=== PATIENT | female | born 1970 | race Caucasian/White ===

== ENCOUNTER 2017-04-10 13:04 | Inpatient (IN) | payer MEDICAID, SELFPAY ==
[2017-04-10] VITALS (11 sets, daily range): BP systolic 101–161; BP diastolic 64–98; PULSE 62–98; RESP 14–18; TEMP 36.6–37.3; O2SAT 93–98; BMI 26.3; BMI 25.9
[2017-04-10 14:45] LABS: Absolute Lymphocyte Count 2.48 X10^3/ul (0.83-4.51); Absolute Neutrophil Count 5.3 X10^3/uL (2.0-7.7); Basophil# 0.09 X10^3/uL; Eosinophil# 0.09 X10^3/uL; Hematocrit 47.8 % (37-47); Hemoglobin 16.9 g/dl (12.0-15.0); Lymphocyte # 2.48 X10^3/ul (4.0); Lymphocyte % 28.7 % (19-41); Mean Corp Hgb Conc 35.4 g/gl (32-36); Mean Corpuscular Volume 104.6 fL (81-99); Mean Platelet Vol. 10.1 fl (6.2-12.0); Monocyte# 0.71 X10^3/uL; Monocyte% 8.2 % (0-10); Neutrophil # 5.26 X10^3/uL (2.7-7.7); Neutrophil % 60.9 % (47-70); POSITIVE COUNT NO; POSITIVE DIFFERENTIAL NO; POSITIVE MORPHOLOGY NO; Platelet Count 221 K/mm3 (150-450); RBC Distribution Width CV 11.9 % (11.6-14.6); RBC Distribution Width SD 45.4 fl (35.1-43.9); Red Blood Count 4.57 M/mm3 (4.2-5.4); White Blood Count 8.7 K/mm3 (4.4-11.0)
[2017-04-10 14:59] LABS: ALB/GLOB Ratio 0.8 RATIO (0.9-2.4); AST(SGOT) 33 U/L (15-37); Alanine Aminotransfer ALT/SGPT 60 U/L (13-56); Albumin, Serum 3.5 g/dL (3.2-5.0); Alkaline Phosphatase 65 U/L (45-117); Anion Gap 8 (5-15); BUN 6 mg/dL (7-18); Calcium,Total 8.9 mg/dL (8.5-10.1); Chloride 102 mmol/L (98-107); Creatinine, Serum 0.67 mg/dL (0.55-1.02); EST Glomerular Filtration Rate 102 mL/min (>60); Est Glom Filt Rate - Afr Amer 123 mL/min (>60); Estimated Creatinine Clearance 91.56 ml/min; Globulin 4.2 g/dL (2.2-4.2); Glucose 76 mg/dL (74-106); Potassium 3.8 mmol/L (3.5-5.1); Protein, Total 7.7 g/dL (6.4-8.2); Sodium Level 137 mmol/L (136-145)
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
[2017-04-10 15:04] LABS: Pregnancy, Serum, hCG Quali. NEGATIVE Negative (0-9 Nonpreg)
--- NOTE | 2017-04-10 15:23 | ED.VISSUMM ---
- ER Visit Summary Date of Service: 04/10/17 Chief Complaint: Alcohol withdrawal History of Present Illness: The patient is a 47 F who goes to [facility] in [place]. She reports that she typically drinks 8-1024 ounce but ice a day. Also she occasionally has liquor. She has been doing this for approximately 2 years. Her last beer was today. States that she drank 1 beer this morning because she felt nauseated and shaky. She reports that it did improve those symptoms. She denies drug use. Patient reports that she has a chronic cough that is unchanged. She has had aches and chills throughout the day. Physical Examination: Vitals: Stable. Afebrile. General: Well-nourished and well-developed. Head: Normocephalic atraumatic. Neck: Supple, no lymphadenopathy. No JVD. Nontender. Cardiovascular: Regular rate and rhythm. No murmurs. Respiratory: No respiratory distress. Clear to auscultation bilaterally. Abdominal: Soft, nontender, nondistended, normal bowel sounds. No guarding, rebound, or peritoneal signs. Back: Nontender. Extremities: Nontender, no edema. Skin: Normal color, no rash. Neurologic: Alert and oriented ?3. Cranial nerves II through XII are intact. Normal strength and sensation. Psych: Normal affect. Test Results: CBC is marked for hemoglobin is 16.9 and hematocrit of 47.8. Chem-7 is more for BUN of 6. LFTs marked for an AST of 60. test is negative. Alcohol level is pending. Emergency Department Course and Treatment: Patient reports that she does not need anything at this time. Clinically she does not appear to be uncomfortable and benzodiazepines and Librium were held. She was seen by [facility] and does meet criteria for admission. Treatment Plan: Patient was discussed with Dr. Burton and will be admitted the hospital for further relation and treatment. Disposition: Admitted in stable condition Impression: 1. Alcoholism. This note was generated with [employer] dictation software. It may contain incorrect words, spelling, and punctuation that were not noted in review of the chart prior to signing ED Disposition - Plan for ED Patient: Chief Complaint: Subst Abuse
--- NOTE | 2017-04-10 15:26 | ED.DCSUM_ITS ---
- ER Visit Summary Date of Service: 04/10/17 Chief Complaint: Alcohol withdrawal History of Present Illness: The patient is a 47 F who goes to [facility] in [place]. She reports that she typically drinks 8-1024 ounce but ice a day. Also she occasionally has liquor. She has been doing this for approximately 2 years. Her last beer was today. States that she drank 1 beer this morning because she felt nauseated and shaky. She reports that it did improve those symptoms. She denies drug use. Patient reports that she has a chronic cough that is unchanged. She has had aches and chills throughout the day. Physical Examination: Vitals: Stable. Afebrile. General: Well-nourished and well-developed. Head: Normocephalic atraumatic. Neck: Supple, no lymphadenopathy. No JVD. Nontender. Cardiovascular: Regular rate and rhythm. No murmurs. Respiratory: No respiratory distress. Clear to auscultation bilaterally. Abdominal: Soft, nontender, nondistended, normal bowel sounds. No guarding, rebound, or peritoneal signs. Back: Nontender. Extremities: Nontender, no edema. Skin: Normal color, no rash. Neurologic: Alert and oriented ?3. Cranial nerves II through XII are intact. Normal strength and sensation. Psych: Normal affect. Test Results: CBC is marked for hemoglobin is 16.9 and hematocrit of 47.8. Chem -7 is more for BUN of 6. LFTs marked for an AST of 60. test is negative. Alcohol level is pending. Emergency Department Course and Treatment: Patient reports that she does not need anything at this time. Clinically she does not appear to be uncomfortable and benzodiazepines and Librium were held. She was seen by [facility]art[facility] and does meet criteria for admission. Treatment Plan: Patient was discussed with Dr. Burton and will be admitted the hospital for further relation and treatment. Disposition: Admitted in stable condition Impression: 1. Alcoholism. This note was generated with [employer] dictation software. It may contain incorrect words, spelling, and punctuation that were not noted in review of the chart prior to signing ED Disposition - Plan for ED Patient: Chief Complaint: Subst Abuse
--- NOTE | 2017-04-10 15:52 | EKG12_ITS ---
Test Reason : HTN Blood Pressure : / mmHG Vent. Rate : 079 BPM Atrial Rate : 079 BPM P-R Int : 130 ms QRS Dur : 086 ms QT Int : 402 ms P-R-T Axes : 072 067 069 degrees QTc Int : 460 ms Sinus rhythm with occasional Premature ventricular complexes Right atrial enlargement Borderline ECG No previous ECGs available Confirmed by STEPHANIE MARCIAL, JENNIFER ([id number]), commercial production editor MILLY TERRY ([id number]) on 04/21/2017 3:25:57 PM Referred By: JUMANA Confirmed By:JENNIFER BROWN MD
[2017-04-10] MEDS: amLODIPine 10 MG Tablet PO (16:35)
[2017-04-10 16:46] LABS: Amylase 56 U/L (25-115); Lipase 134 U/L (73-393)
[2017-04-10 16:53] LABS: Prothrombin Time (Protime)PT. 13.1 SECONDS (11.7-14.9)
[2017-04-10] MEDS: chlordiazePOXIDE 25 MG Capsule PO ×2 (16:57→22:11)
[2017-04-10] MEDS: cloNIDine HCl 0.1 MG Tablet PO ×2 (16:57→22:10)
[2017-04-10] MEDS: Dicyclomine 10 MG Capsule 20 MG PO (16:57)
[2017-04-10] MEDS: Folic Acid 1 MG Tablet PO (16:57)
[2017-04-10 17:33] LABS: Amphetamine Urine VISTA NEGATIVE (<1000 ng/mL); Barbiturate Urine VISTA NEGATIVE (< 200 ng/mL); Benzodiazepine Urine VISTA NEGATIVE (< 200 ng/mL); Cocaine Urine VISTA NEGATIVE (< 300 ng/mL); Ecstacy Urine VISTA NEGATIVE (< 500 ng/mL); Methadone Urine VISTA NEGATIVE (< 300 ng/mL); PCP Urine VISTA NEGATIVE (< 25 ng/mL); THC Urine VISTA POSITIVE (< 50 ng/mL); Vista UDS pH Range 5
[2017-04-10] MEDS: Thiamine Hydrochloride 100 MG Tablet PO (17:47)
[2017-04-10] MEDS: Multivitamins,Ther W-Minerals Tablet 1 TABLET PO (17:47)
[2017-04-10] MEDS: Pantoprazole Sodium 40 MG Tablet PO (17:49)
[2017-04-10] MEDS: Methocarbamol 750 MG Tablet PO (20:14)
[2017-04-10] MEDS: Pramipexole Di-HCl 0.25 MG Tablet PO (20:14)
[2017-04-10] MEDS: traZODone 50 MG Tablet PO (22:10)
[2017-04-11] VITALS (11 sets, daily range): BP systolic 104–136; BP diastolic 65–93; PULSE 59–92; RESP 15–18; TEMP 36.3–36.6; O2SAT 94–98
[2017-04-11] MEDS: cloNIDine HCl 0.1 MG Tablet PO ×6 (01:01→23:24)
[2017-04-11] MEDS: QUEtiapine 25 MG Tablet PO (01:04)
[2017-04-11] MEDS: chlordiazePOXIDE 25 MG Capsule PO ×3 (05:12→17:44)
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
[2017-04-11] MEDS: Thiamine Hydrochloride 100 MG Tablet PO (11:14)
[2017-04-11] MEDS: Multivitamins,Ther W-Minerals Tablet 1 TABLET PO (11:14)
[2017-04-11] MEDS: Folic Acid 1 MG Tablet PO (11:14)
[2017-04-11] MEDS: amLODIPine 10 MG Tablet PO (11:15)
[2017-04-11] MEDS: Pantoprazole Sodium 40 MG Tablet PO (11:16)
[2017-04-11] MEDS: Pramipexole Di-HCl 0.25 MG Tablet PO (11:30)
[2017-04-11] MEDS: QUEtiapine 25 MG Tablet 50 MG PO ×2 (11:37→23:25)
[2017-04-11] MEDS: Dicyclomine 10 MG Capsule 20 MG PO (11:37)
[2017-04-11] MEDS: Methocarbamol 750 MG Tablet PO (12:08)
[2017-04-11] MEDS: Budesonide Respules 0.5 MG/2 ML AMPUL.NEB. INHALATION (13:33)
[2017-04-11] MEDS: Albuterol 2.5 MG/3 ML VIAL.NEB. INHALATION (13:33)
--- NOTE | 2017-04-11 15:35 | CHAPLAIN ---
Type of Pastoral Visit _x__ Initial Visit ___ Follow-up Visit ___ On-call Visit ___ General Patient Visit ___ Spiritual Assessment ___ Family Conference ___ Bereavement ___ Rapid Response ___ Code Blue ___ Other (describe below) Pastoral Care Referral From _x__ Patient ___ Family ___ Nurse ___ Physician ___ Pile Driver Operator Helper ___ Food Crops Farm Hand ___ Other (describe below) Sacrament/Intervention _x__ Active listening ___ Anointing ___ Congregational ___ Bereavement ___ Communion ___ Sanam exploration ___ ___ Life review _x__ Prayer ___ Reconciliation ___ Sacrament of Sick _x__ Supportive presence ___ Wedding ___ Other (describe below) Pastoral Comments patient expresses anxiety about a place to live after she lives the hospital; pt has other family members with addictions; pt only contact with a sanam group is going to weekly free meals at a [employer]; pt is open to spiritual and emotional support; prayer accepted;
[2017-04-11] MEDS: Acetaminophen 325 MG Tablet 650 MG PO (16:27)
[2017-04-11] MEDS: Meloxicam 7.5 MG Tablet PO (23:24)
[2017-04-11] MEDS: traZODone 50 MG Tablet PO (23:24)
[2017-04-12] VITALS (8 sets, daily range): BP systolic 105–137; BP diastolic 67–82; PULSE 59–68; RESP 16–18; TEMP 36.4–36.6; O2SAT 92–98
[2017-04-12] MEDS: chlordiazePOXIDE 25 MG Capsule PO ×3 (02:20→18:05)
[2017-04-12] MEDS: cloNIDine HCl 0.1 MG Tablet PO ×5 (05:31→21:54)
[2017-04-12] MEDS: Albuterol 2.5 MG/3 ML VIAL.NEB. INHALATION (07:16)
[2017-04-12] MEDS: Budesonide Respules 0.5 MG/2 ML AMPUL.NEB. INHALATION (07:17)
[2017-04-12] MEDS: Multivitamins,Ther W-Minerals Tablet 1 TABLET PO (08:15)
[2017-04-12] MEDS: Thiamine Hydrochloride 100 MG Tablet PO (08:15)
[2017-04-12] MEDS: Folic Acid 1 MG Tablet PO (08:15)
[2017-04-12 09:42] LABS: Vitamin B12 274 pg/mL (211-911)
[2017-04-12] MEDS: Meloxicam 7.5 MG Tablet PO ×2 (11:01→21:54)
[2017-04-12] MEDS: amLODIPine 10 MG Tablet PO (11:01)
[2017-04-12] MEDS: Pantoprazole Sodium 40 MG Tablet PO (11:01)
[2017-04-12] MEDS: QUEtiapine 25 MG Tablet 50 MG PO ×2 (11:01→21:54)
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
[2017-04-13 05:40] VITALS: BP 113/74; PULSE 74; RESP 18; TEMP 36.6; O2SAT 95
[2017-04-13] MEDS: cloNIDine HCl 0.1 MG Tablet PO ×3 (05:48→14:08)
[2017-04-13] MEDS: chlordiazePOXIDE 25 MG Capsule PO (05:48)
[2017-04-13] MEDS: Albuterol 2.5 MG/3 ML VIAL.NEB. INHALATION ×2 (07:28→13:44)
[2017-04-13] MEDS: Budesonide Respules 0.5 MG/2 ML AMPUL.NEB. INHALATION (07:28)
[2017-04-13 07:29] VITALS: PULSE 80; RESP 22; O2SAT 93
[2017-04-13 08:05] VITALS: BP 104/67; PULSE 80; RESP 18; TEMP 36.7
[2017-04-13] MEDS: amLODIPine 10 MG Tablet PO (08:10)
[2017-04-13] MEDS: Multivitamins,Ther W-Minerals Tablet 1 TABLET PO (08:10)
[2017-04-13] MEDS: Folic Acid 1 MG Tablet PO (08:10)
[2017-04-13] MEDS: Meloxicam 7.5 MG Tablet PO (08:10)
[2017-04-13] MEDS: QUEtiapine 25 MG Tablet 50 MG PO (08:10)
[2017-04-13] MEDS: Thiamine Hydrochloride 100 MG Tablet PO (08:11)
[2017-04-13] MEDS: Pantoprazole Sodium 40 MG Tablet PO (08:11)
--- NOTE | 2017-04-13 10:55 | PCM.DC ---
- Discharge Diagnoses Current Active Problems: Current Active and Chronic Problems Acute hyperactive alcohol withdrawal delirium (Acute) CHRONIC ALCOHOL USE DEPENDENCE (Chronic) Polysubstance use, including opioids (Chronic) Hypertension (Chronic) Chronic pain (Chronic) History of cervical spinal surgery (Chronic) Alcoholic hepatitis (Chronic) You will use the following diet at home:: No restrictions Your food should be the consistency of: Regular Your liquids should be the consistency of: Regular/Thin Discharge Activity: Return to Normal Activity Call your doctor if you observe: Fever of 101 or Higher, Shortness of breath Instructions: Understanding Bipolar Disorder, Treating Bipolar Disorder Additional Instructions: 1. I am giving you a RX for Meloxicam...this is and anti-inflamatory/pain reliever and it is not addictive. you will take it twice a day with food. Do NOT use Motrin, advil, Alleve while taking this medication. You can take Tylenol with it. 2. I am also giving you a prescription for a small dose of Seroquel to help with alcohol withdrawal and also with the bipolar disorder. I highly recommend you continue taking the Seroquel. You do not want to screw up and lose the opportunity to get housing and stay sober. People with bipolar disorder self medicate when the bipolar is out of control......some people self medicate with alcohol, some with heroin, some with meth.....take the Seroquel. I have decreased the dose during the day to 1 tab so it does not make you too sleepy and you will take 2 tabs at night. Pending Tests on Discharge: none Allergies/Adverse Reactions: Allergies bee venom protein (honey bee) Allergy (Verified 04/10/17 13:08) Anaphylaxis Medications to take at Discharge Albuterol Aerosols [Ventolin Aerosols] 2.5 mg INHALATION Q4H PRN PRN 04/10/17 Albuterol Sulfate [Ventolin Hfa] 1 - 2 puff PO Q4H PRN 04/10/17 Amlodipine [Norvasc] 10 mg PO DAILY 04/10/17 Budesonide/Formoterol 160/4.5 [Symbicort 160/4.5 Mcg Inhaler (SP)] 1 puff INHALATION BID 04/10/17 Amlodipine [Norvasc] 10 mg PO DAILY #30 tab 04/13/17 Meloxicam [Mobic] 7.5 mg PO BID #60 tab 04/13/17 Nicotine [Nicoderm Cq] 21 mg TRANSDERM. DAILY #28 patch 04/13/17 Quetiapine Fumarate [Seroquel] 50 mg PO BID #90 tab 04/13/17 The following prescriptions were given: Amlodipine [Norvasc] 10 mg PO DAILY #30 tab Nicotine [Nicoderm Cq] 21 mg TRANSDERM. DAILY #28 patch Meloxicam [Mobic] 7.5 mg PO BID #60 tab Quetiapine Fumarate [Seroquel] 50 mg PO BID #90 tab Primary Care Physician: Frank Doctor,Out of [NON-STAFF] - Proposed Discharge Date: 04/13/17
--- NOTE | 2017-04-13 11:15 | PCM.DC.SUM ---
Discharge Date and Diagnosis - Problem List Patient Problems: Active and Suspected Problems Acute hyperactive alcohol withdrawal delirium (Acute) Date of Admission: 04/10/17 Date of Discharge: 04/13/17 - Primary Discharge Diagnosis Active and Suspected Problems Acute hyperactive alcohol withdrawal delirium (Acute) - Secondary Discharge Diagnosis Chronic Problems Nicotine dependence (Chronic) Bipolar disorder (Chronic) Alcoholism (Chronic) Cannabis abuse (Chronic) Hypertension (Chronic) Chronic pain (Chronic) History of cervical spinal surgery (Chronic) Hospital Course and Treatment Imaging Results: Laboratory Tests 04/10/17 04/10/17 04/10/17 14:30 14:30 14:30 WBC 8.7 RBC 4.57 Hgb 16.9 H Hct 47.8 H MCV 104.6 H MCH 37.0 H MCHC 35.4 RDW 11.9 RDW Differential 45.4 H Plt Count 221 MPV 10.1 Immature Gran % (Auto) 0.200 Neut % (Auto) 60.9 Lymph % (Auto) 28.7 [place] % (Auto) 8.2 Eos % (Auto) 1.0 Baso % (Auto) 1.0 Absolute Neuts (auto) 5.3 Absolute Lymphs (auto) 2.48 Total Counted Not Reportable PT INR Sodium 137 Potassium 3.8 Chloride 102 Carbon Dioxide 27.0 Anion Gap 8 BUN 6 L Creatinine 0.67 Estim Creat Clear Calc 91.56 Est GFR (MDRD) Af Amer 123 Est GFR (MDRD) Non-Af 102 BUN/Creatinine Ratio 9.0 L Glucose 76 Calcium 8.9 Total Bilirubin 0.30 AST 33 ALT 60 H Alkaline Phosphatase 65 Total Protein 7.7 Albumin 3.5 Globulin 4.2 Albumin/Globulin Ratio 0.8 L Amylase Lipase Vitamin B12 Folate Serum , Qual Urine Opiates Screen Urine Methadone Screen Ur Barbiturates Screen Ur Phencyclidine Scrn Ur Amphetamines Screen U Methamphetamin-MDMA U Benzodiazepines Scrn Urine Cocaine Screen U Cannabinoids Screen Ur Drug Screen Comment Ethyl Alcohol 12.0 04/10/17 04/10/17 04/10/17 14:30 16:17 16:17 WBC RBC Hgb Hct MCV MCH MCHC RDW RDW Differential Plt Count MPV Immature Gran % (Auto) Neut % (Auto) Lymph % (Auto) [place] % (Auto) Eos % (Auto) Baso % (Auto) Absolute Neuts (auto) Absolute Lymphs (auto) Total Counted PT 13.1 INR 1.0 Sodium Potassium Chloride Carbon Dioxide Anion Gap BUN Creatinine Estim Creat Clear Calc Est GFR (MDRD) Af Amer Est GFR (MDRD) Non-Af BUN/Creatinine Ratio Glucose Calcium Total Bilirubin AST ALT Alkaline Phosphatase Total Protein Albumin Globulin Albumin/Globulin Ratio Amylase 56 Lipase 134 Vitamin B12 Folate Serum , Qual NEGATIVE Urine Opiates Screen Urine Methadone Screen Ur Barbiturates Screen Ur Phencyclidine Scrn Ur Amphetamines Screen U Methamphetamin-MDMA U Benzodiazepines Scrn Urine Cocaine Screen U Cannabinoids Screen Ur Drug Screen Comment Ethyl Alcohol 04/10/17 04/11/17 04/11/17 16:55 06:35 06:35 WBC RBC Hgb Hct MCV MCH MCHC RDW RDW Differential Plt Count MPV Immature Gran % (Auto) Neut % (Auto) Lymph % (Auto) [place] % (Auto) Eos % (Auto) Baso % (Auto) Absolute Neuts (auto) Absolute Lymphs (auto) Total Counted PT INR Sodium Potassium Chloride Carbon Dioxide Anion Gap BUN Creatinine Estim Creat Clear Calc Est GFR (MDRD) Af Amer Est GFR (MDRD) Non-Af BUN/Creatinine Ratio Glucose Calcium Total Bilirubin AST ALT Alkaline Phosphatase Total Protein Albumin Globulin Albumin/Globulin Ratio Amylase Lipase Vitamin B12 274 Folate 15.70 Serum , Qual Urine Opiates Screen NEGATIVE Urine Methadone Screen NEGATIVE Ur Barbiturates Screen NEGATIVE Ur Phencyclidine Scrn NEGATIVE Ur Amphetamines Screen NEGATIVE U Methamphetamin-MDMA NEGATIVE U Benzodiazepines Scrn NEGATIVE Urine Cocaine Screen NEGATIVE U Cannabinoids Screen POSITIVE H Ur Drug Screen Comment Ethyl Alcohol None Operations: None Procedures: None Summary of Care Provided: Patient is a 47-year-old female with a past medical history of alcoholism, polysubstance abuse, hypertension, chronic pain, COPD, hepatitis C, history of injury of the cervical spine and history of alcoholic hepatitis who presented to the emergency department at [facility] on 04/10/2017 requesting admission for medical stabilization for alcohol withdrawal. She is chronically on Percocet for neck pain. Vital signs at presentation to the emergency room were temp 99.1, pulse rate 98, blood pressure 131/98, respiratory rate 18 and she was 93-98% saturated on room air. Hemoglobin was increased at 16.9 with an MCV of 104.6. Platelets were within normal limits. Electrolytes were within normal limits and the BUN was 6 with a creatinine of 0.67. LFTs were unremarkable and the lipase was within normal limits. test was negative. Urine drug screen was positive for cannabis and the ethyl alcohol level was 12. She has a long history of bipolar disorder and there is a strong history of both bipolar disorder and alcoholism in her family. She attended a rehab program in [facility] and was sober for 6 months but went back to abusing alcohol because everyone around her drinks. Currently living with her aunt who is an alcoholic but she is trying to get out of this living situation. She plans outpatient program at discharge. She has not seen a psychiatrist in many years and was on no medications to treat BPD. She was admitted to the hospital for medical stabilization for withdrawal from alcohol. the [employer] protocol for alcohol withdrawal was initiated. She was having visual hallucinations and she was started on Seroquel in addition to the Librium. She had no manic behavior while in the hospital. She did well with the withdrawal and on 04/13/2017 she was afebrile with stable vital signs. She had very minimal tremors of her hands. She was alert and oriented ?3 and appropriate. [employer] counselor discussed inpatient treatment and found a residential facility for her to go to however the patient elected to seek outpatient therapy in [place]. She apparently has an appt in the near future to be considered for [facility] housing and she does not want to miss this. She is already connected with a counsellor in [place] and will go into an Intensive OP behavior modification program for 3 hours 3 times a week. She was discharged on Seroquel 25 mg each AM and 50 mg at HS. She was also given a RX for Meloxicam to help control chronic pain. she was discharged 04/13/17. I strongly suggested she find a psychiatrist to treat the BPD because her chance of staying sober is significantly decreased if the underlying mental Health disorder is not addressed and treated. This note was generated with [employer] dictation software. It may contain incorrect words, spelling, and punctuation that were not noted in checking the note before signing. Discharge Activity: Return to Normal Activity Call your doctor if you observe: Fever of 101 or Higher, Shortness of breath Home Medications: Medications to take at Discharge Albuterol Aerosols [Ventolin Aerosols] 2.5 mg INHALATION Q4H PRN PRN 04/10/17 Albuterol Sulfate [Ventolin Hfa] 1 - 2 puff PO Q4H PRN 04/10/17 Amlodipine [Norvasc] 10 mg PO DAILY 04/10/17 Budesonide/Formoterol 160/4.5 [Symbicort 160/4.5 Mcg Inhaler (SP)] 1 puff INHALATION BID 04/10/17 Amlodipine [Norvasc] 10 mg PO DAILY #30 tab 04/13/17 Meloxicam [Mobic] 7.5 mg PO BID #60 tab 04/13/17 Nicotine [Nicoderm Cq] 21 mg TRANSDERM. DAILY #28 patch 04/13/17 Quetiapine Fumarate [Seroquel] 50 mg PO BID #90 tab 04/13/17 Following Prescrptions Were Given to Patient: Amlodipine [Norvasc] 10 mg PO DAILY #30 tab Nicotine [Nicoderm Cq] 21 mg TRANSDERM. DAILY #28 patch Meloxicam [Mobic] 7.5 mg PO BID #60 tab Quetiapine Fumarate [Seroquel] 50 mg PO BID #90 tab Primary Care Physician: Frank Ren,Out of [NON-STAFF] - Patient Instructions: Understanding Bipolar Disorder, Treating Bipolar Disorder Disposition: Home Minutes spent on discharge:: 30 Patient Condition:: Stable Meaningful Use Info Meaningful Use Diagnoses (Choose all that apply): None applicable Code Visit Inpatient E&M: 16816 Disch Hosp
--- NOTE | 2017-04-13 11:37 | DS.PCM_ITS ---
Discharge Date and Diagnosis - Problem List Patient Problems: Active and Suspected Problems Acute hyperactive alcohol withdrawal delirium (Acute) Date of Admission: 04/10/17 Date of Discharge: 04/13/17 - Primary Discharge Diagnosis Active and Suspected Problems Acute hyperactive alcohol withdrawal delirium (Acute) - Secondary Discharge Diagnosis Chronic Problems Nicotine dependence (Chronic) Bipolar disorder (Chronic) Alcoholism (Chronic) Cannabis abuse (Chronic) Hypertension (Chronic) Chronic pain (Chronic) History of cervical spinal surgery (Chronic) Hospital Course and Treatment Imaging Results: Laboratory Tests 04/10/17 04/10/17 04/10/17 14:30 14:30 14:30 WBC 8.7 RBC 4.57 Hgb 16.9 H Hct 47.8 H MCV 104.6 H MCH 37.0 H MCHC 35.4 RDW 11.9 RDW Differential 45.4 H Plt Count 221 MPV 10.1 Immature Gran % (Auto) 0.200 Neut % (Auto) 60.9 Lymph % (Auto) 28.7 [place] % (Auto) 8.2 Eos % (Auto) 1.0 Baso % (Auto) 1.0 Absolute Neuts (auto) 5.3 Absolute Lymphs (auto) 2.48 Total Counted Not Reportable PT INR Sodium 137 Potassium 3.8 Chloride 102 Carbon Dioxide 27.0 Anion Gap 8 BUN 6 L Creatinine 0.67 Estim Creat Clear Calc 91.56 Est GFR (MDRD) Af Amer 123 Est GFR (MDRD) Non-Af 102 BUN/Creatinine Ratio 9.0 L Glucose 76 Calcium 8.9 Total Bilirubin 0.30 AST 33 ALT 60 H Alkaline Phosphatase 65 Total Protein 7.7 Albumin 3.5 Globulin 4.2 Albumin/Globulin Ratio 0.8 L Amylase Lipase Vitamin B12 Folate Serum , Qual Urine Opiates Screen Urine Methadone Screen Ur Barbiturates Screen Ur Phencyclidine Scrn Ur Amphetamines Screen U Methamphetamin-MDMA U Benzodiazepines Scrn Urine Cocaine Screen U Cannabinoids Screen Ur Drug Screen Comment Ethyl Alcohol 12.0 04/10/17 04/10/17 04/10/17 14:30 16:17 16:17 WBC RBC Hgb Hct MCV MCH MCHC RDW RDW Differential Plt Count MPV Immature Gran % (Auto) Neut % (Auto) Lymph % (Auto) [place] % (Auto) Eos % (Auto) Baso % (Auto) Absolute Neuts (auto) Absolute Lymphs (auto) Total Counted PT 13.1 INR 1.0 Sodium Potassium Chloride Carbon Dioxide Anion Gap BUN Creatinine Estim Creat Clear Calc Est GFR (MDRD) Af Amer Est GFR (MDRD) Non-Af BUN/Creatinine Ratio Glucose Calcium Total Bilirubin AST ALT Alkaline Phosphatase Total Protein Albumin Globulin Albumin/Globulin Ratio Amylase 56 Lipase 134 Vitamin B12 Folate Serum , Qual NEGATIVE Urine Opiates Screen Urine Methadone Screen Ur Barbiturates Screen Ur Phencyclidine Scrn Ur Amphetamines Screen U Methamphetamin-MDMA U Benzodiazepines Scrn Urine Cocaine Screen U Cannabinoids Screen Ur Drug Screen Comment Ethyl Alcohol 04/10/17 04/11/17 04/11/17 16:55 06:35 06:35 WBC RBC Hgb Hct MCV MCH MCHC RDW RDW Differential Plt Count MPV Immature Gran % (Auto) Neut % (Auto) Lymph % (Auto) [place] % (Auto) Eos % (Auto) Baso % (Auto) Absolute Neuts (auto) Absolute Lymphs (auto) Total Counted PT INR Sodium Potassium Chloride Carbon Dioxide Anion Gap BUN Creatinine Estim Creat Clear Calc Est GFR (MDRD) Af Amer Est GFR (MDRD) Non-Af BUN/Creatinine Ratio Glucose Calcium Total Bilirubin AST ALT Alkaline Phosphatase Total Protein Albumin Globulin Albumin/Globulin Ratio Amylase Lipase Vitamin B12 274 Folate 15.70 Serum , Qual Urine Opiates Screen NEGATIVE Urine Methadone Screen NEGATIVE Ur Barbiturates Screen NEGATIVE Ur Phencyclidine Scrn NEGATIVE Ur Amphetamines Screen NEGATIVE U Methamphetamin-MDMA NEGATIVE U Benzodiazepines Scrn NEGATIVE Urine Cocaine Screen NEGATIVE U Cannabinoids Screen POSITIVE H Ur Drug Screen Comment Ethyl Alcohol None Operations: None Procedures: None Summary of Care Provided: Patient is a 47-year-old female with a past medical history of alcoholism, polysubstance abuse, hypertension, chronic pain, COPD, hepatitis C, history of injury of the cervical spine and history of alcoholic hepatitis who presented to the emergency department at [facility] on 04/10/2017 requesting admission for medical stabilization for alcohol withdrawal. She is chronically on Percocet for neck pain. Vital signs at presentation to the emergency room were temp 99.1, pulse rate 98, blood pressure 131/98, respiratory rate 18 and she was 93-98% saturated on room air. Hemoglobin was increased at 16.9 with an MCV of 104.6. Platelets were within normal limits. Electrolytes were within normal limits and the BUN was 6 with a creatinine of 0.67. LFTs were unremarkable and the lipase was within normal limits. test was negative. Urine drug screen was positive for cannabis and the ethyl alcohol level was 12. She has a long history of bipolar disorder and there is a strong history of both bipolar disorder and alcoholism in her family. She attended a rehab program in [facility] and was sober for 6 months but went back to abusing alcohol because everyone around her drinks. Currently living with her aunt who is an alcoholic but she is trying to get out of this living situation. She plans outpatient program at discharge. She has not seen a psychiatrist in many years and was on no medications to treat BPD. She was admitted to the hospital for medical stabilization for withdrawal from alcohol. the [employer] protocol for alcohol withdrawal was initiated. She was having visual hallucinations and she was started on Seroquel in addition to the Librium. She had no manic behavior while in the hospital. She did well with the withdrawal and on 04/13/2017 she was afebrile with stable vital signs. She had very minimal tremors of her hands. She was alert and oriented ?3 and appropriate. [employer] counselor discussed inpatient treatment and found a residential facility for her to go to however the patient elected to seek outpatient therapy in [place]. She apparently has an appt in the near future to be considered for [facility] housing and she does not want to miss this. She is already connected with a counsellor in [place] and will go into an Intensive OP behavior modification program for 3 hours 3 times a week. She was discharged on Seroquel 25 mg each AM and 50 mg at HS. She was also given a RX for Meloxicam to help control chronic pain. she was discharged 04/13/17. I strongly suggested she find a psychiatrist to treat the BPD because her chance of staying sober is significantly decreased if the underlying mental Health disorder is not addressed and treated. This note was generated with [employer] dictation software. It may contain incorrect words, spelling, and punctuation that were not noted in checking the note before signing. Discharge Activity: Return to Normal Activity Call your doctor if you observe: Fever of 101 or Higher, Shortness of breath Home Medications: Medications to take at Discharge Albuterol Aerosols [Ventolin Aerosols] 2.5 mg INHALATION Q4H PRN PRN 04/10/17 Albuterol Sulfate [Ventolin Hfa] 1 - 2 puff PO Q4H PRN 04/10/17 Amlodipine [Norvasc] 10 mg PO DAILY 04/10/17 Budesonide/Formoterol 160/4.5 [Symbicort 160/4.5 Mcg Inhaler (SP)] 1 puff INHALATION BID 04/10/17 Amlodipine [Norvasc] 10 mg PO DAILY #30 tab 04/13/17 Meloxicam [Mobic] 7.5 mg PO BID #60 tab 04/13/17 Nicotine [Nicoderm Cq] 21 mg TRANSDERM. DAILY #28 patch 04/13/17 Quetiapine Fumarate [Seroquel] 50 mg PO BID #90 tab 04/13/17 Following Prescrptions Were Given to Patient: Amlodipine [Norvasc] 10 mg PO DAILY #30 tab Nicotine [Nicoderm Cq] 21 mg TRANSDERM. DAILY #28 patch Meloxicam [Mobic] 7.5 mg PO BID #60 tab Quetiapine Fumarate [Seroquel] 50 mg PO BID #90 tab Primary Care Physician: Frank Ren,Out of [NON-STAFF] - Patient Instructions: Understanding Bipolar Disorder, Treating Bipolar Disorder Disposition: Home Minutes spent on discharge:: 30 Patient Condition:: Stable Meaningful Use Info Meaningful Use Diagnoses (Choose all that apply): None applicable Code Visit Inpatient E&M: 09378 Disch Hosp
[2017-04-13] MEDS: Methocarbamol 750 MG Tablet PO (11:48)
--- NOTE | 2017-04-13 11:50 | NURSING ---
Discussed discharge order with pt. Pt states her ride will be here at about 1600.
[2017-04-13 13:44] VITALS: PULSE 59; RESP 16
[2017-04-13 14:05] VITALS: BP 105/64; PULSE 65; RESP 18; TEMP 36.4; O2SAT 94
[2017-04-14 11:44] LABS: Vitamin B1, Thiamine 197.3 nmol/L (66.5-200.0)
== END 2017-04-13 15:40 | disposition home or self-care (01) | DRG 434 ==
LOC: ED 14:43 → MS2 15:10
PROVIDERS: Admitting Provider Internal Medicine; Emergency Provider Emergency Medicine; Visit Provider Internal Medicine
DX: F10.231 Alcohol dependence with withdrawal delirium (principal); B18.2 Chronic viral hepatitis C; F31.9 Bipolar disorder, unspecified; J44.9 Chronic obstructive pulmonary disease, unspecified; F17.210 Nicotine dependence, cigarettes, uncomplicated; Z23 Encounter for immunization; I10 Essential (primary) hypertension; R44.1 Visual hallucinations; G89.29 Other chronic pain; M54.2 Cervicalgia; F12.10 Cannabis abuse, uncomplicated; Y90.0 Blood alcohol level of less than 20 mg/100 ml; Z81.1 Family history of alcohol abuse and dependence; Z81.8 Family history of other mental and behavioral disorders; L81.8 Other specified disorders of pigmentation
CPT/HCPCS: 36415; 80053; 80307; 80320; 82150; 82274; 82607; 82746; 83690; 84425; 84703; 85025; 85610; 93005; 94640; 97802; 99282; 99406; 90686; A4216; G0480